=== PATIENT | male | born 1980 | race Caucasian/White ===

== ENCOUNTER → 2020-08-06 08:55 | Outpatient (CLI) | payer OTHER, SELFPAY ==
[2016-08-24 09:32] VITALS: BMI 33.5
[2020-08-06 13:11] LABS: Cholesterol 222 mg/dL (200); Glucose 103 mg/dL (74-106); High Density Lipoprotein 38 mg/dL; Thyroid Stim Hormone (TSH) 1.22 uIU/mL (0.358-3.74); Triglycerides 166 mg/dL; Very Low Density Lipoprotein 33 mg/dL (5-40)
== END ==
PROVIDERS: PCP Family Medicine; Visit Provider Family Medicine
DX: Z00.00 Encounter for general adult medical examination without abnormal findings (principal); R53.83 Other fatigue
CPT/HCPCS: 36415; 80061; 82947; 84443